=== PATIENT | male | born 2005 | race Caucasian/White ===

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

== ENCOUNTER → 2024-03-15 09:48 | Outpatient (BNVA) | payer BC, MEDICAID, SELFPAY | PROVIDERS: PCP Family Medicine; Visit Provider Family Medicine | DX: I88.9 Nonspecific lymphadenitis, unspecified (principal) | CPT/HCPCS: 80053; 85025 ==

== ENCOUNTER 2024-05-04 15:18 | Outpatient (CLI) | payer SELFPAY ==
--- NOTE | 2024-05-04 15:20 | XR_ITS ---
WS: [id number] Examination: XR elbow RT min 3V* [id number] Reason for Exam: right elbow pain after throwing a ball Date: May 04, 2024 Comparison: None. Findings: The bone density is maintained. There is no destruction. There is no abnormal fat pad. There is no fracture. No dislocation is identified. XR/XR elbow RT min 3V* [id number] Impression: No acute bony abnormality the right elbow is identified.
== END 2024-05-04 15:19 | disposition home or self-care (01) ==
LOC: RAD 15:19
PROVIDERS: PCP Family Medicine; Visit Provider Clinical Nurse Specialist Adult Health
DX: M25.521 Pain in right elbow (principal)
CPT/HCPCS: 73080